=== PATIENT | female | born 2005 | race Caucasian/White ===

== ENCOUNTER → 2023-06-08 | Outpatient (CLI) | payer BC ==
--- NOTE | 2023-06-10 15:24 | XR ---
EXAMINATION TYPE: XR ribs LT DATE OF EXAM: 06/08/2023 COMPARISON: None HISTORY: Left lower anterior rib pain TECHNIQUE: 2 view left RIBS FINDINGS: No acute displaced rib fractures are evident. No pneumothorax are evident on these images. IMPRESSION: 1. Normal left ribs as visualized
--- NOTE | 2023-06-10 15:25 | XR ---
EXAMINATION TYPE: XR chest 2V DATE OF EXAM: 06/08/2023 COMPARISON: Left rib study same date INDICATION: Lower left rib pain TECHNIQUE: Frontal and lateral views of the chest are obtained. FINDINGS: The heart size is normal. The pulmonary vasculature is normal. The lungs are clear. No pneumothorax is evident. No displaced rib fractures identified. IMPRESSION: 1. No acute pulmonary process.
== END | disposition home or self-care (01) ==
LOC: RADXRMAIN 16:36
PROVIDERS: ATTEND Nurse Practitioner Family
DX: R07.81 Pleurodynia (principal)
CPT/HCPCS: 71046